=== PATIENT | female | born 1955 | race Two or more races ===

== ENCOUNTER 2021-11-29 06:20 | Day surgery (SDC) | payer OTHER | END 2021-11-29 12:00 | disposition home or self-care (01) | LOC: AMB-ENDOS 06:20 | PROVIDERS: ATTEND Surgery | DX: D12.7 Benign neoplasm of rectosigmoid junction (principal); D12.0 Benign neoplasm of cecum; K57.30 Diverticulosis of large intestine without perforation or abscess without bleeding; E78.5 Hyperlipidemia, unspecified ==